=== PATIENT | female | born 1990 | race Caucasian/White ===

== ENCOUNTER 2017-11-10 20:11 | Emergency (ER) | payer MEDICAID ==
[2017-11-10] MEDS ORDERED: IBUPROFEN 600 MG TAB PO ONE (20:18)
--- NOTE | 2017-11-10 21:48 | EDPHY ---
H & P Time Seen by Provider: 11/10/17 20:30 HPI/ROS: Chief complaint: Right ring finger injury History of present illness: This is a 27-year-old female who presents to the emergency department for right ring finger injury. Patient states she got her finger stuck in a metal weight lifting machine crushing the tip of it. He has had pain. Some bleeding around the nail. She denies abnormal coolness or paresthesias in the finger. She can still move it well. Smoking Status: Never smoked Physical Exam: General: Alert, nontoxic Skin: Bleeding around the edge of the nail, the nail is not displaced. There is no open wounds to the rest of the finger. Musculoskeletal: Patient is flexing extending the finger well in the DIPJ, PIP and MCP joint well. Vascular: Capillary refill brisk and the finger. Neurologic: Sensation intact using light touch and two-point discrimination. Constitutional: Initial Vital Signs Temperature (C) 36.8 C 11/10/17 20:13 Heart Rate 68 11/10/17 20:13 Respiratory Rate 16 11/10/17 20:13 Blood Pressure 112/81 H 11/10/17 20:13 O2 Sat (%) 97 11/10/17 20:13 O2 Delivery Mode Room Air Allergies/Adverse Reactions: No Known Allergies Allergy (Unverified 11/10/17 20:15) Home Medications: Medication Instructions Recorded NK [No Known Home Meds] 11/10/17 MDM/Departure - MDM Imaging: I viewed and interpreted images myself Procedures: Procedure: Splint placement. A finger splint was applied. After application of the splint I returned and re- examined the patient. The splint was adequately immobilizing the joint and distal to the splint the patient's circulation and sensation was intact. Medications Given: Discontinued Medications Ibuprofen (Motrin) 600 mg PO EDNOW ONE Stop: 11/10/17 20:19 Last Admin: 11/10/17 20:25 Dose: 600 mg ED Course/Re-evaluation: Patient seen under the supervision of my secondary supervising physician Dr. Quinn Houston. Patient presents for a right ring finger injury. The finger is neurovascularly intact. X-ray confirms a tuft fracture. She is splinted. She is referred to a hand doctor for recheck. Home care is discussed. Return precautions are given. - Depart Disposition: Home, Routine, Self-Care Clinical Impression: Fracture, finger Qualifiers: Encounter type: initial encounter Finger: ring finger Fracture type: closed Phalanx: distal Fracture alignment: nondisplaced Laterality: right Qualified Code(s): S62.664A - Nondisplaced fracture of distal phalanx of right ring finger , initial encounter for closed fracture Condition: Good Instructions: Finger Fracture (ED) Additional Instructions: Follow-up with hand surgery next week for continued evaluation and care Use ibuprofen 400 mg 3 times a day for the next 2-3 days for pain If symptoms worsen or new symptoms develop return to the emergency room for recheck Referrals: NONE *PRIMARY CARE P,. [Primary Care Provider] - As per Instructions Jaquelin Hernandez MD [Medical Doctor] - As per Instructions
[2017-11-10 23:05] VITALS: BP 106/70
== END 2017-11-10 22:00 | disposition home or self-care (01) ==
DX: S62.664A Nondisplaced fracture of distal phalanx of right ring finger, initial encounter for closed fracture (principal); W23.0XXA Caught, crushed, jammed, or pinched between moving objects, initial encounter
CPT/HCPCS: L3925

== ENCOUNTER 2018-12-19 02:51 | Emergency (ER) | payer MEDICAID | END 2018-12-19 06:35 | disposition home or self-care (01) ==